=== PATIENT | male | born 2000 | race Caucasian/White ===

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

== ENCOUNTER 2021-08-29 10:53 | Emergency (ER) | payer OTHER ==
[~2021-08-29] VITALS: Ht 172.7 cm; Wt 59.0 kg
[2021-08-29] MEDS ORDERED: HYDROXYZINE HCL25 MG PO (12:32)
== END 2021-08-29 12:45 | disposition home or self-care (01) ==
LOC: ED 10:53
DX: F41.9 Anxiety disorder, unspecified (principal)
CPT/HCPCS: 99283

== ENCOUNTER 2022-07-04 21:37 | Emergency (ER) | payer OTHER ==
[~2022-07-04] VITALS: Ht 172.7 cm; Wt 78.3 kg
[~2022-07-04 21:37] MED LIST changes: +HYDROXYZINE HCL25 MG PO
[2022-07-04 23:03] VITALS: BP 120/84
== END 2022-07-04 23:04 | disposition home or self-care (01) ==
LOC: ED 21:37
DX: E86.0 Dehydration (principal)
CPT/HCPCS: 36415; 80053; 85025; J2405; J3411; J7030

== ENCOUNTER 2022-07-07 14:59 | Emergency (ER) | payer OTHER ==
[~2022-07-07] VITALS: Ht 172.7 cm; Wt 77.3 kg
--- OUTSIDE RECORDS SUMMARY | 2022-07-07 15:07 | XMS ---
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 Rose has no Care Guidelines for this patient. Rene VIS[facility] COUNT (12 MO.) [facility] T[facility] NOTE: Visits indicate total known visits. ED/C VISIT TRACKING (12 MO.) 07[facility]07[facility]2022 15[facility] COMPLAINT: - VOMITING 07/04/2022 21:41 [facility] TYPE: Emergency COMPLAINT: - WAS DRINKING AND NOW IS VOMITING DIAGNOSES: - Dehydration - Nausea with vomiting, unspecified 2021 10:55 [facility] [place] TYPE: Emergency COMPLAINT: - NUMBNESS IN HAND AND RIGHT SIDE OF MOUTH DIAGNOSES: - Anxiety disorder, unspecified INPATIENT VISIT TRACKING (12 MO.) No inpatient visits to display in this time frame [email or web address]
[2022-07-07] MEDS ORDERED: ONDANSETRON ODT4 MG PO (18:55)
[2022-07-07 19:01] VITALS: BP 120/73
== END 2022-07-07 19:00 | disposition home or self-care (01) ==
LOC: ED 14:59
DX: R11.2 Nausea with vomiting, unspecified (principal)
CPT/HCPCS: A9270

== ENCOUNTER 2024-06-13 09:36 | Emergency (ER) | payer OTHER ==
[~2024-06-13] VITALS: Ht 172.7 cm; Wt 81.3 kg
[~2024-06-13 09:36] MED LIST changes: +ONDANSETRON ODT4 MG PO
[2024-06-13] MEDS ORDERED: CYCLOBENZAPRINE10 MG PO (10:10)
[2024-06-13] MEDS ORDERED: IBU600 MG PO (10:10)
[2024-06-13] MEDS ORDERED: CYCLOBENZAPRINE HCL 10 MG TAB PO ONE (10:15)
[2024-06-13] MEDS ORDERED: IBUPROFEN 600 MG TAB PO ONE (10:15)
[2024-06-13 10:18] VITALS: BP 139/78
== END 2024-06-13 10:19 | disposition home or self-care (01) ==
LOC: ED 09:36
DX: M54.50 Low back pain, unspecified (principal); X50.0XXA Overexertion from strenuous movement or load, initial encounter; Z79.899 Other long term (current) drug therapy
CPT/HCPCS: 99283; A9270

== ENCOUNTER 2024-08-22 10:06 | Emergency (ER) | payer OTHER ==
[~2024-08-22] VITALS: Ht 172.7 cm; Wt 79.0 kg
[~2024-08-22 10:06] MED LIST changes: +CYCLOBENZAPRINE10 MG PO; +IBU600 MG PO
[2024-08-22] MEDS ORDERED: SODIUM CHLORIDE 0.9% 1,000 ML IV PRN (11:00)
[2024-08-22] MEDS ORDERED: ondansetron HCL 4 MG/2 ML VIAL IV ONE (11:00)
[2024-08-22 11:30] LABS: BASOPHILS 0.7 % (0.2-1.2); EOSINOPHILS 0.2 % (0.8-7.0); HEMOGLOBIN 16.1 g/dL (13.7-17.5); LYMPHOCYTES 13.1 % (21.8-53.1); MCH 29.2 PG (25.7-32.2); MCV 83.5 fL (79.0-92.2); MONOCYTES 8.1 % (5.3-12.2); NEUTROPHILS 77.6 % (34.0-67.9); PLATELET COUNT 250 K/uL (163-337); RBC 5.51 M/uL (4.63-6.08)
[2024-08-22 11:45] LABS: ALBUMIN 4.1 g/dL (3.4-5.0); ALBUMIN/GLOBULIN RATIO 0.93 (1.1-2.4); ANION GAP 11.6 (7-21); BILIRUBIN, TOTAL 0.8 mg/dL (0.2-1.0); BUN/CREATININE RATIO 15.25 (6.0-28.6); CALCIUM 9.8 mg/dL (8.5-10.1); CREATININE, SERUM 1.18 mg/dL (0.70-1.30); MAGNESIUM 2.2 mg/dL (1.8-2.4); POTASSIUM 3.6 mmol/L (3.5-5.1); PROTEIN, TOTAL 8.5 g/dL (6.4-8.2)
[2024-08-22] MEDS ORDERED: DICYCLOMINE HCL20 MG PO (13:18)
[2024-08-22] MEDS ORDERED: ONDANSETRON ODT4 MG PO (13:18)
[2024-08-22 13:43] VITALS: BP 134/93
== END 2024-08-22 13:15 | disposition home or self-care (01) ==
LOC: ED 10:06
PROVIDERS: Emergency Medicine
DX: K52.9 Noninfective gastroenteritis and colitis, unspecified (principal); Z79.899 Other long term (current) drug therapy
CPT/HCPCS: 36415; 74177; 80053; 83735; 85025; 96374; 99284-25; J2405; J7030; Q9967

== ENCOUNTER 2024-10-06 11:49 | Emergency (ER) | payer OTHER ==
[~2024-10-06] VITALS: Ht 172.7 cm; Wt 82.9 kg
[~2024-10-06 11:49] MED LIST changes: +DICYCLOMINE HCL20 MG PO
[2024-10-06] MEDS ORDERED: AMOXICILLIN/CLAVULANATE K 875 MG TAB PO ONE (12:15)
[2024-10-06] MEDS ORDERED: HYDROCODONE/ACETA 7.5/325 TAB PO ONE (12:15)
[2024-10-06] MEDS ORDERED: IBUPROFEN 600 MG TAB PO ONE (12:15)
[2024-10-06] MEDS ORDERED: HYDROCODON-ACE1 EA11 PO (12:23)
[2024-10-06] MEDS ORDERED: AMOX TR-K CLV1 EAC1 PO (12:23)
[2024-10-06 12:53] VITALS: BP 141/86
== END 2024-10-06 12:55 | disposition home or self-care (01) ==
LOC: ED 11:49
DX: S61.452A Open bite of left hand, initial encounter (principal); S61.250A Open bite of right index finger without damage to nail, initial encounter; W54.0XXA Bitten by dog, initial encounter
CPT/HCPCS: 73130; 99283; A9270